=== PATIENT | male | born 1950 | race Caucasian/White ===

== ENCOUNTER 2019-12-19 14:16 | Outpatient (CLI) | payer MEDICARE, SELFPAY ==
--- NOTE | ~2019-12-19 | XR_ITS ---
XR knee RT min 4V 12/19/2019 15:32 Indication: Knee pain Procedure: 4 views of each knee Comparison: No prior studies for comparison. Findings: No fracture, subluxation or dislocation. No significant joint effusion. There is mild parker lofemoral compartment osteoarthritis. No osteolytic or sclerotic lesions are identified. Impression: 1: Mild patellofemoral compartment osteoarthritis of the knees. Reviewed, dictated and finalized at location A. Impression: 1: Mild patellofemoral compartment osteoarthritis of the knees.
--- NOTE | ~2019-12-19 | XR_ITS ---
EXAMINATION: XR knee LT min 4V DATE: 12/19/2019 15:32 INDICATION: Left knee pain. TECHNIQUE: 4 views of left knee were obtained. COMPARISON: None. FINDINGS: Bone alignment is normal. No fracture. There is moderate osteoarthritis of medial compartme nt and mild osteoarthritis of lateral and patellofemoral compartments. There is a moderate-sized knee joint effusion. IMPRESSION: 1. Moderate left knee osteoarthritis. 2. Moderate-sized left knee joint effusion. Reviewed, dictated and finalized at location A.
== END 2019-12-19 14:17 | disposition home or self-care (01) ==
PROVIDERS: PCP Internal Medicine; Visit Provider Internal Medicine
DX: M17.0 Bilateral primary osteoarthritis of knee (principal); M25.462 Effusion, left knee
CPT/HCPCS: 73564

== ENCOUNTER → 2021-09-03 08:28 | Outpatient (CLI) | payer MEDICARE, SELFPAY ==
[2021-09-03 17:10] LABS: SARS-CoV-2 RNA PCR Negative
== END ==
PROVIDERS: PCP Internal Medicine; Visit Provider Internal Medicine Gastroenterology
DX: Z01.812 Encounter for preprocedural laboratory examination (principal); Z20.822 Contact with and (suspected) exposure to COVID-19
CPT/HCPCS: C9803; U0003; U0005

== ENCOUNTER 2021-09-07 02:10 | Day surgery (SDC) | payer MEDICARE, SELFPAY ==
[2021-08-26 14:00] VITALS: BMI 33.5
--- NOTE | 2021-09-06 13:23 | P.HP_ITS ---
History of Present Illness History of Present Illness Consent: Risks, benefits, and alternatives have been discussed and questions answered. Patient agrees to proceed with procedure. Chief complaint: hx of colon polyps Narrative: Blake Vail is a 70 year old male referred for colon cancer screening. He had a couple of polyps removed about 8 years ago Review of Systems Review of Systems: All systems reviewed & are unremarkable except as noted in HPI and below PMFSH Past Medical History Medical History Allergies Chronic kidney disease, stage 3 (moderate) HTN (hypertension) Hyperglycemia Hypertriglyceridemia Seizure disorder Surgical History Surgical History History of circumcision History of hemorrhoidectomy History of nasal surgery Family History Family History Mother Alzheimer disease Father Heart disease Heart failure Cerebrovascular accident Grandparent Heart failure Cancer of unknown origin FH: lung cancer Brain cancer Social History Social History Smoking status: Never smoker Alcohol intake: never Substance use: never Substance use type: does not use Living arrangements: with family Spiritual care concerns: No Meds Home Medications and Allergies Home Medications Medication Instructions Recorded Confirmed Type warfarin 1 mg tablet 0.5 mg PO DAILY #90 tablet 01/20/21 08/26/21 Rx fenofibrate nanocrystallized 48 mg 48 mg PO DAILY #90 tablet 04/05/21 08/26/21 Rx tablet hydrochlorothiazide 25 mg tablet 25 mg PO DAILY #90 tablet 04/05/21 08/26/21 Rx potassium chloride 10 mEq 10 meq PO BID #60 cap 04/13/21 08/26/21 Rx capsule,extended release warfarin 5 mg tablet 5 mg PO DAILY #90 tablet 07/14/21 08/26/21 Rx atorvastatin 10 mg tablet 10 mg PO DAILY #90 tablet 08/18/21 08/26/21 Rx losartan 100 mg tablet 100 mg PO DAILY #90 tablet 08/18/21 08/26/21 Rx terbinafine HCl 250 mg tablet 250 mg PO DAILY 42 Days #42 tablet 08/18/21 08/26/21 Rx diphenhydramine HCl [Allergy 25 mg PO HS PRN 08/26/21 08/26/21 History (diphenhydramine)] Allergies Allergy/AdvReac Type Severity Reaction Status Date / Time apixaban Allergy Severe HIVES Verified 09/07/21 10:51 aspirin Allergy Severe Anaphylaxis Verified 09/07/21 10:51 dabigatran etexilate Allergy Severe Chest Pain Verified 09/07/21 10:51 Penicillins Allergy Severe Hives Verified 09/07/21 10:51 rivaroxaban Allergy Severe HIVES Verified 09/07/21 10:51 Exam Resp: Auscultation: clear to auscultation bilaterally Cardio: Rate: regular rate Rhythm: regular rhythm GI: GI Palp: Yes Soft to palpation and No Tenderness to palpation present (GI) Assessment and Plan Assessment and plan (1) Colon cancer screening: Code(s): Z12.11 - Encounter for screening for malignant neoplasm of colon Status: Acute Assessment and Plan: Colonoscopy with possible biopsy or polypectomy or cautery or injection of subst ances.
[2021-09-07 10:52] VITALS: BP 118/83; PULSE 97; RESP 18; TEMP 36.1; O2SAT 97; BMI 32.4
[2021-09-07] MEDS: LACTATED RINGERS 1,000 ML 150 ML IV CONT (11:02)
--- NOTE | 2021-09-07 11:27 | WPDANESEPPF ---
Anes - Initial Pre Proc Eval Procedure: Operation Date: 09/07/21 11:45 Proposed Procedures p Screening Colonoscopy - Barney Quan MD Date/Time: 09/07/21 11:27 Surgeon: Barney Quan MD Pre Op Diagnosis: hx of colon polyps Patient Data Age: 70 Gender: M Height: 1.8 m Weight: 105.6 kg Last Vital Signs Temp 96.9 F L 09/07/21 10:52 Pulse 97 09/07/21 10:52 Resp 18 09/07/21 10:52 BP 118/83 09/07/21 10:52 Pulse Ox 97 09/07/21 10:52 Allergies Allergy/AdvReac Type Severity Reaction Status Date / Time apixaban Allergy Severe HIVES Verified 09/07/21 10:51 aspirin Allergy Severe Anaphylaxis Verified 09/07/21 10:51 dabigatran etexilate Allergy Severe Chest Pain Verified 09/07/21 10:51 Penicillins Allergy Severe Hives Verified 09/07/21 10:51 rivaroxaban Allergy Severe HIVES Verified 09/07/21 10:51 Home Medications Medication Instructions Recorded Confirmed Type warfarin 1 mg tablet 0.5 mg PO DAILY #90 tablet 01/20/21 08/26/21 Rx fenofibrate nanocrystallized 48 mg 48 mg PO DAILY #90 tablet 04/05/21 08/26/21 Rx tablet hydrochlorothiazide 25 mg tablet 25 mg PO DAILY #90 tablet 04/05/21 08/26/21 Rx potassium chloride 10 mEq 10 meq PO BID #60 cap 04/13/21 08/26/21 Rx capsule,extended release warfarin 5 mg tablet 5 mg PO DAILY #90 tablet 07/14/21 08/26/21 Rx atorvastatin 10 mg tablet 10 mg PO DAILY #90 tablet 08/18/21 08/26/21 Rx losartan 100 mg tablet 100 mg PO DAILY #90 tablet 08/18/21 08/26/21 Rx terbinafine HCl 250 mg tablet 250 mg PO DAILY 42 Days #42 tablet 08/18/21 08/26/21 Rx diphenhydramine HCl [Allergy 25 mg PO HS PRN 08/26/21 08/26/21 History (diphenhydramine)] Patient hx anesthesia problems: none Family hx anesthesia problems: none Results Review: All pre-operative results and documents have been reviewed as part of the pre-operative evaluation. PMFSH Past Medical History Medical History Allergies Chronic kidney disease, stage 3 (moderate) HTN (hypertension) Hyperglycemia Hypertriglyceridemia Seizure disorder Surgical History Surgical History History of circumcision History of hemorrhoidectomy History of nasal surgery Family History Family History Mother Alzheimer disease Father Heart disease Heart failure Cerebrovascular accident Grandparent Heart failure Cancer of unknown origin FH: lung cancer Brain cancer Social History Social History Smoking status: Never smoker Alcohol intake: never Substance use: never Substance use type: does not use Living arrangements: with family Spiritual care concerns: No Anes - Eval Final PreProcedure Day of Procedure 09/07/21 11:27 Heart: irregular rhythm Lungs: clear to auscultation Airway: Mallampati scale class III Neurological: alert and oriented Last oral intake: >/= 8 hours ASA classification: III Emergent: no Anesthetic plan: proceed Anesthesia type and monitoring: general GIVS and standard monitoring Results Review: All pre-operative results and documents have been reviewed as part of the pre-operative evaluation. Informed Consent: The patient's anesthetic plan and its attendant risks and benefits were discussed with the patient/family/POA. Questions were solicited and answers provided to the satisfaction of the patient/family/POA.
[2021-09-07] MEDS: EPINEPHrine INJ 1 MG/10 ML SYRINGE 0.15 MG XX (12:28)
[2021-09-07 12:29] VITALS: BP 106/79; PULSE 85; RESP 18; O2SAT 98
[2021-09-07 12:39] VITALS: BP 116/76; PULSE 86; RESP 18; O2SAT 97
[2021-09-07 12:47] VITALS: BP 113/78; PULSE 78; RESP 20; O2SAT 97
== END 2021-09-07 13:13 | disposition home or self-care (01) ==
PROVIDERS: PCP Internal Medicine; Visit Provider Internal Medicine Gastroenterology
PROC: 0DJD8ZZ Inspection of Lower Intestinal Tract, Via Natural or Artificial Opening Endoscopic (ICD-10-PCS; CPT 45378; principal; 2021-09-07 11:45)
DX: Z12.11 Encounter for screening for malignant neoplasm of colon (principal); D12.4 Benign neoplasm of descending colon; D12.0 Benign neoplasm of cecum; D12.5 Benign neoplasm of sigmoid colon; K62.1 Rectal polyp; I12.9 Hypertensive chronic kidney disease with stage 1 through stage 4 chronic kidney disease, or unspecified chronic kidney disease; N18.30 Chronic kidney disease, stage 3 unspecified; E78.1 Pure hyperglyceridemia; G40.909 Epilepsy, unspecified, not intractable, without status epilepticus; Z79.01 Long term (current) use of anticoagulants
CPT/HCPCS: 45380; 45385; 45381; 88305; C9803; J0171; J2704; J7120; U0003; U0005

== ENCOUNTER 2022-10-19 12:31 | Outpatient (CLI) | payer MEDICARE, SELFPAY ==
--- NOTE | ~2022-10-19 | CT_ITS ---
EXAMINATION: CT soft tissue neck w con DATE: 10/19/2022 13:06 INDICATION: Localized swelling, mass and lump, neck. TECHNIQUE: Computed tomography (CT) of the neck was performed with 75 mL Omnipaque-350 intravenous co ntrast. Automated exposure control and iterative reconstruction technique were employed. The dose-derek gth product was 694.14 mGy-cm. COMPARISON: None FINDINGS: There are airspace and groundglass opacities in peripheral right upper lobe. The orbits are normal. There is a 2.9 x 2.3 cm mass in inferior superficial right parotid gland. There are no patho logically enlarged lymph nodes. There is plaque in the proximal internal carotid arteries with less t ramirez 50% stenosis relative to normal distal artery lumen diameters. There is mucosal thickening in the paranasal sinuses. The mastoid air cells are normal. There is moderate cervical spondylosis. IMPRESSION: 1. 2.9 cm mass in right parotid gland. The differential diagnosis includes benign mixed tumor, Warthi n tumor, and less likely primary malignancy or marija metastatic disease. Ultrasound-guided fine-needl e aspiration is recommended. Reviewed, dictated and finalized at location E. IGERATION SUPERVISOR IMPRESSION: 1. 2.9 cm mass in right parotid gland. The differential diagnosis includes shubham gn mixed tumor, Warthin tumor, and less likely primary malignancy or marija meta static disease. Ultrasound-guided fine-needle aspiration is recommended.
== END 2022-10-19 12:32 | disposition home or self-care (01) ==
PROVIDERS: PCP Internal Medicine; Visit Provider Nurse Practitioner
DX: R22.9 Localized swelling, mass and lump, unspecified (principal)
CPT/HCPCS: 70491; Q9967

== ENCOUNTER 2022-12-16 12:34 | Outpatient (CLI) | payer MEDICARE, SELFPAY ==
--- NOTE | 2022-12-16 12:56 | ECG_ITS ---
Measurements Intervals Melvin Rate: P: KS: QRS: QRSD: T: QT: QTc: Interpretive Statements ATRIAL FIBRILLATION BASELINE ARTIFACT- I, II, III, AVL, AVF ABNORMAL ECG NO PRIOR ECG FOR COMPARISON Electronically Signed On 12-16-2022 15:01:02 RESEARCH SPECIALIST by Ariel Guerin D.O.
[2022-12-16 13:27] LABS: INR 1.9; Prothrombin Time 21.1 Seconds (11.1-14.7)
[2022-12-16 13:28] LABS: Partial Thromboplastin Time 39.4 SECONDS (22.3-36.8)
[2022-12-16 13:30] LABS: Anion Gap 6 mmol/L (8-16); Blood Urea Nitrogen 22 mg/dL (9-20); Calcium 9.4 mg/dL (8.4-10.2); Carbon Dioxide 25 mmol/L (22-30); Chloride 105 mmol/L (98-107); Estimated Glomerular Filt Rate 50; Glucose 94 mg/dL (65-110); Potassium 3.4 mmol/L (3.4-5.0); Sodium 136 mmol/L (137-145)
== END 2022-12-16 12:35 | disposition home or self-care (01) ==
LOC: ANHSURGERY 12:38
PROVIDERS: Anesthesiology; PCP Internal Medicine; Visit Provider Otolaryngology
DX: Z79.01 Long term (current) use of anticoagulants (principal); Z79.899 Other long term (current) drug therapy; I48.91 Unspecified atrial fibrillation; R94.31 Abnormal electrocardiogram [ECG] [EKG]
CPT/HCPCS: 36415; 80048; 85610; 85730; 93005

== ENCOUNTER 2022-12-19 00:36 | Day surgery (SDC) | payer MEDICARE, SELFPAY ==
[2022-12-15 13:41] VITALS: BMI 33.5
--- NOTE | 2022-12-15 14:03 | PC.NURSE ---
PRE-OP INSTRUCTIONS, PLEASE READ CAREFULLY Report to the Outpatient Waiting Room, entrance under the green pavilion located off [facility], at time _0615_ on date _12/19/22_. Planned Procedure Time: _0815_. Time changes happen often and if your time is changed the preop area will call you the afternoon before. - You and your visitor will be asked to self-screen and do not enter if you have any COVID symptoms. - Only one visitor is requested with a max of two and NO children visitors are allowed at this time. - The patient visitor may be requested to leave or wait in car when not with patient due to distancing restrictions. - A mask is optional within the hospital at this time. Patients may have clear liquids (water, carbonated beverages, clear teas, apple juice) until 3 hours prior to surgery (0515 AM) with a maximum of 20 ounces. - No food from midnight until time of surgery Take the following medications with a SIP of water the morning of surgery: _NONE_ DO NOT STOP ANY OF YOUR OTHER PRESCRIPTION MEDICATIONS PRIOR TO SURGERY ?EXCEPT THE FOLLOWING Medications to discontinue per physician _PT STATES STOPPING WARFARIN 12/14/[address] PAYTON'S INSTRUCTIONS_ Please no deodorant, or body powder the day of surgery. No jewelry (including any body piercings) or valuables the day of surgery, leave them at home. Please take a shower or bath the night before, or the morning of, surgery with an antibacterial soap. Wear comfortable, loose fitting clothing. - Jewelry must be removed prior to entering the operating room. Rings and piercings that are not removed may be cut off. - The hospital will not accept responsibility for valuables. - Please leave all valuables, including medications, at home the day of surgery. If you are going home after surgery, a licensed dairy truck driver must drive you home. - NO public transportation without another adult if you receive anesthesia. - We recommend that an adult stay with you for 24 hours following discharge. - We also recommend that you do not drive, make important decision, drink alcoholic beverages, or take any drugs that were not prescribed by your health care provider for at least 24 hours after your discharge time. Follow any additional instructions given to you from your surgeon. If you or anyone in your household have experienced Covid symptoms in the past week, please notify your surgeon or the nurse liaison at the phone number below for possible testing. Telephone instructions given to _ROXY_and asked if any additional questions and then verbalized understanding. Patient advised to call surgeon office or pre surgery nurse liaison [phone] if any additional questions.
[2022-12-19] VITALS (9 sets, daily range): BP systolic 113–147; BP diastolic 83–99; PULSE 71–85; RESP 14–17; TEMP 36.3–36.4; O2SAT 95–99
[2022-12-19] MEDS: LACTATED RINGERS 1,000 ML 30 ML IV CONT ×2 (07:10→10:51)
--- NOTE | 2022-12-19 07:25 | PM.IMHP ---
H&P: HPI History of Present Illness Date/Time: 12/19/22 07:25 Chief Complaint: Parotid mass Narrative: Blake lane a right parotid mass, 2-3cm in size, present for several months, presenting today for removal. Review of Systems Review of Systems: All systems reviewed & are unremarkable except as noted in HPI and below PMFSH Past Medical History Medical History Afib Allergies Chronic kidney disease, stage 3 (moderate) HTN (hypertension) Hyperglycemia Hypertriglyceridemia Seizure disorder Surgical History Surgical History History of circumcision History of hemorrhoidectomy History of nasal surgery Family History Family History Mother Alzheimer disease Father Heart disease Heart failure Cerebrovascular accident Grandparent Heart failure Cancer of unknown origin FH: lung cancer Brain cancer Social History Social History (Updated 11/23/22 @ 14:16 by Lynette Powers [facility]) Smoking status: Never smoker Second hand tobacco smoke exposure: No Alcohol intake: never Substance use: never Substance use type: does not use Lack of Transportation: No Lack of Food: Never True Current Housing: I Have Housing Concerned About Future Housing: No Difficulty Paying Gas/Electric Bills: No Difficulty Paying for Meds: No Currently Unemployed: No Education: High School Diploma/GED Difficulty w/ Childcare or Family Care: No Living arrangements: with family Spiritual care concerns: No Meds Home Medications and Allergies Home Medications Medication Instructions Recorded Confirmed Type diphenhydramine HCl 25 mg capsule 25 mg PO HS PRN Congestion 08/26/21 12/15/22 History (Allergy (diphenhydramine)) warfarin 1 mg tablet 0.5 mg PO DAILY #90 tabs 01/28/22 12/15/22 Rx atorvastatin 10 mg tablet See Rx Instructions .Route 03/16/22 12/15/22 Rx .COMPLEX #90 tabs hydrochlorothiazide 25 mg tablet See Rx Instructions .Route 03/16/22 12/15/22 Rx .COMPLEX #90 tabs potassium chloride 10 mEq See Rx Instructions .Route 04/14/22 12/15/22 Rx capsule,extended release .COMPLEX #60 caps fenofibrate nanocrystallized 48 mg See Rx Instructions .Route 06/29/22 12/15/22 Rx tablet .COMPLEX #90 tabs warfarin 5 mg tablet See Rx Instructions .Route 07/11/22 12/15/22 Rx .COMPLEX #90 tabs losartan 100 mg tablet See Rx Instructions .Route 09/26/22 12/15/22 Rx .COMPLEX #90 tabs Allergies Allergy/AdvReac Type Severity Reaction Status Date / Time apixaban Allergy Severe HIVES Verified 12/19/22 06:56 aspirin Allergy Severe Anaphylaxis Verified 12/19/22 06:56 dabigatran etexilate Allergy Severe Chest Pain Verified 12/19/22 06:56 Penicillins Allergy Severe Hives Verified 12/19/22 06:56 rivaroxaban Allergy Severe HIVES Verified 12/19/22 06:56 Exam Narrative: Right tail of parotid mass, 2-3cm in size, below angle of mandible. No adenopathy, facial nerve weakness. Rest of exam wnl. 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 Right side marked. r/b/a reviewed, pt agrees to proceed. Refer to outpt H&P for details.
--- NOTE | 2022-12-19 07:27 | WPDHPUPDATE1 ---
History and Physical Update Update Date/Time: 12/19/22 07:27 History and Physical has been reviewed, including an updated exam of the patient. There are NO changes in the patient's condition. Risks, benefits, and alternatives have been discussed and questions answered. Patient agrees to proceed with procedure.
--- NOTE | 2022-12-19 08:12 | WPDANESEPPF ---
Anes - Initial Pre Proc Eval Procedure: Operation Date: 12/19/22 08:15 Proposed Procedures p Right Superficial Parotidectomy - Alon Mcduffie MD Date/Time: 12/19/22 08:12 Surgeon: Alon Mcduffie MD Pre Op Diagnosis: neoplasm of parotid gland Patient Data Age: 72 Gender: M Height: 1.8 m Weight: 107.3 kg Last Vital Signs Temp 36.4 C L 12/19/22 07:15 Pulse 71 12/19/22 07:15 Resp 16 12/19/22 07:15 BP 140/99 H 12/19/22 07:15 Pulse Ox 98 12/19/22 07:15 O2 Del Method Room Air 12/19/22 07:15 Allergies Allergy/AdvReac Type Severity Reaction Status Date / Time apixaban Allergy Severe HIVES Verified 12/19/22 07:48 aspirin Allergy Severe Anaphylaxis Verified 12/19/22 07:48 dabigatran etexilate Allergy Severe Chest Pain Verified 12/19/22 07:48 Penicillins Allergy Severe Hives Verified 12/19/22 07:48 rivaroxaban Allergy Severe HIVES Verified 12/19/22 07:48 Home Medications Medication Instructions Recorded Confirmed Type diphenhydramine HCl 25 mg capsule 25 mg PO HS PRN Congestion 08/26/21 12/15/22 History (Allergy (diphenhydramine)) warfarin 1 mg tablet 0.5 mg PO DAILY #90 tabs 01/28/22 12/15/22 Rx atorvastatin 10 mg tablet See Rx Instructions .Route 03/16/22 12/15/22 Rx .COMPLEX #90 tabs hydrochlorothiazide 25 mg tablet See Rx Instructions .Route 03/16/22 12/15/22 Rx .COMPLEX #90 tabs potassium chloride 10 mEq See Rx Instructions .Route 04/14/22 12/15/22 Rx capsule,extended release .COMPLEX #60 caps fenofibrate nanocrystallized 48 mg See Rx Instructions .Route 06/29/22 12/15/22 Rx tablet .COMPLEX #90 tabs warfarin 5 mg tablet See Rx Instructions .Route 07/11/22 12/15/22 Rx .COMPLEX #90 tabs losartan 100 mg tablet See Rx Instructions .Route 09/26/22 12/15/22 Rx .COMPLEX #90 tabs Laboratory Tests 12/19/22 07:01 PT Pending INR Pending APTT Pending Patient hx anesthesia problems: none Family hx anesthesia problems: none Results Review: All pre-operative results and documents have been reviewed as part of the pre-operative evaluation. [facility] Past Medical History Medical History Afib Allergies Chronic kidney disease, stage 3 (moderate) HTN (hypertension) Hyperglycemia Hypertriglyceridemia Seizure disorder Surgical History Surgical History History of circumcision History of hemorrhoidectomy History of nasal surgery Family History Family History Mother Alzheimer disease Father Heart disease Heart failure Cerebrovascular accident Grandparent Heart failure Cancer of unknown origin FH: lung cancer Brain cancer Social History Social History Smoking status: Never smoker Second hand tobacco smoke exposure: No Alcohol intake: never Substance use: never Substance use type: does not use Lack of Transportation: No Lack of Food: Never True Current Housing: I Have Housing Concerned About Future Housing: No Difficulty Paying Gas/Electric Bills: No Difficulty Paying for Meds: No Currently Unemployed: No Education: High School Diploma/GED Difficulty w/ Childcare or Family Care: No Living arrangements: with family Spiritual care concerns: No Anes - Eval Final PreProcedure Day of Procedure 12/19/22 08:12 Patient weight: obese Heart: irregular rhythm Lungs: clear to auscultation Airway: Mallampati scale class III Neurological: alert and oriented Last oral intake: >/= 8 hours ASA classification: III Emergent: no Anesthetic plan: proceed Anesthesia type and monitoring: general ETT and standard monitoring Results Review: All pre-operative results and documents have been reviewed as part of the pre-operative evaluation. Informed Consent: The patient's anesthetic plan an
[2022-12-19] MEDS: ceFAZolin 2 GM/D5W 50 ML 2 GM/50 ML BAG IVPB (08:31)
[2022-12-19 08:32] LABS: INR 1.3; Prothrombin Time 15.5 Seconds (11.1-14.7)
[2022-12-19] MEDS: LIDO 1%/EPINEPHRINE 1:100,000 20 ML VIAL 10 ML INFILTRATE (10:33)
[2022-12-19] MEDS: MUPIROCIN 2% OINT 22 GM TUBE 1 APPLIC TOPICAL (10:39)
--- NOTE | 2022-12-19 10:50 | W.PM.PROC2 ---
Procedure Note - Detailed Date of Procedure 12/19/22 Pre-op Diagnosis neoplasm of parotid gland Post-op Diagnosis Same Procedure Performed right superficial parotidectomy with facial nerve monitor Surgeon Alon Mcduffie MD Anesthesia General Indications right parotid mass Findings cystic parotid mass. Ruptured during surgery, copiously irrigated. fully removed. Marginal mandibular branch identified, stimulated at end of case. Description of Procedure After informed consent was obtained the time out procedure was performed the patient was brought to the operating room placed on the operating table in the supine position. The patient was placed under general endotracheal anesthesia. A modified Gonzalo incision was marked out in the patient's right preauricular crease. 1% lidocaine with one 100,000 epinephrine was injected into the marked incision. The mass was noted to be anterior in the neck and superficial to the mandible. Decision was made to approach in the neck and make the incision two fingerbreadths below the inferior margin of the mandible. The patient was prepped and draped in the usual fashion. A #15 scalpel was used to make the skin incision. This was carried down through platysma. Dissection proceeded through the superficial cervical fascia and exposed the mass. It was cystic, appriximately 3-4cm in size. this was carefully dissected circumferentially to avoid exposing or injurying branches of the facial nerve. The mass was intimately associated with the gland itself posteriorly and required careful dissection to separate. This was done with fine dissection and harmonic scalpel. Just deep to the mass, the marginal mandibular branch was found and was intimately associated with the mass and had to be carefully preserved and dissected around the mass. During this, the mass was ruptured and cystic fluid had to be evacuated. Once decompressed, the mass was easier to elevate off of the surrounding fascia and parotid gland until fully removed. Once the specimen was passed off the field the wound bed was carefully irrigated using warm saline solution, there is no evidence of any significant bleeding. The marginal mandibular branch positively stimulated. The wound was then closed in layers using 3-0 Vicry and? 5-0 Prolene suture. Ointment was placed on the incision. The patient was then awakened from general anesthesia, extubated and transferred to recovery in stable condition. Estimated Blood Loss 5 Drains No Packing No Pathology Yes (right parotid mass) Complications No immediate complications Condition Stable Disposition PACU
[2022-12-19] MEDS: fentaNYL CITRATE INJ (*CRX) 100 MCG/2 ML VIAL 25 MCG IV PUSH (11:54)
== END 2022-12-19 12:57 | disposition home or self-care (01) ==
PROVIDERS: Anesthesiology; PCP Internal Medicine; Visit Provider Otolaryngology
PROC: (CPT 42410; principal; 2022-12-19 08:15)
DX: K11.6 Mucocele of salivary gland (principal); I48.91 Unspecified atrial fibrillation; N18.30 Chronic kidney disease, stage 3 unspecified; I12.9 Hypertensive chronic kidney disease with stage 1 through stage 4 chronic kidney disease, or unspecified chronic kidney disease; G40.909 Epilepsy, unspecified, not intractable, without status epilepticus
CPT/HCPCS: 42415; 36415; 85610; 85730; 88304; A9270; J0330; J0690; J1100; J2250; J2370; J2405; J3010; J7120

== ENCOUNTER 2024-10-16 08:18 | Outpatient (CLI) | payer MEDICARE, SELFPAY | END 2024-10-16 08:19 | disposition home or self-care (01) | LOC: ANHAUDIO 08:18 | PROVIDERS: PCP Internal Medicine; Visit Provider Clinical Nurse Specialist | DX: H90.3 Sensorineural hearing loss, bilateral (principal) | CPT/HCPCS: 92557; 92567 ==